=== PATIENT | female | born 1950 | race Caucasian/White ===

== ENCOUNTER 2024-04-04 12:01 | Emergency (ER) | payer MEDICARE, OTHER, SELFPAY ==
--- NOTE | ~2024-04-04 | CT_ITS ---
EXAMINATION: CT HEAD WITHOUT CONTRAST CT CERVICAL SPINE WITHOUT CONTRAST CT MAXILLOFACIAL WITHOUT CONTRAST CLINICAL INFORMATION: Head strike. Status post fall. Chipped front tooth. COMPARISON: None. TECHNIQUE: Multidetector volumetric imaging of the head was performed without the administration of intravenous contrast. Images were also obtained with through the cervical spine as well as the facial bones from the frontal sinuses through the mandible. Multiplanar reconstructed images in coronal and sagittal orientations were submitted. This CT examination was performed using dose optimization techniques as appropriate, variously including the following: *Automated exposure control *Adjustment of mA and/or kV according to patient size (this includes techniques or standardized protocols for targeted exams where dose is matched to indication/reason for exam; i.e. extremities or head) *Use of iterative reconstruction technique DOSE: 1223 mGy-cm FINDINGS: HEAD: There is no evidence of acute intracranial hemorrhage or territorial infarction. No abnormal mass-effect or midline shift. No extra-axial fluid collections. Garzon to white matter differentiation is well preserved. The ventricles are normal in size and configuration. A few foci of hypoattenuation in the subcortical and periventricular white matter are most consistent with chronic microangiopathic changes. Calcific atherosclerosis is present within the cavernous segments of the internal carotid arteries. The soft tissues and osseous structures are normal. The sinuses and mastoid air cells are clear. MAXILLOFACIAL: The right first maxillary incisor is chipped at its medial crown portion. 2 otherwise appear intact. No fractures of the roots are identified. Punctate foci of radiodense debris are present within the right lower lip just to the right of midline with associated surrounding soft tissue swelling. The mandible, maxilla, pterygoid plates, nasal bones, zygomatic arches, paranasal sinus parks, and bony orbits are intact. No acute osseous abnormality within the maxillofacial region. 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 The paranasal sinuses and mastoid air cells remain well-aerated. Minimal pneumatization of the frontal bones. Globes are aphakic. No retrobulbar abnormalities. Orbits appear intact. CERVICAL SPINE: Vertebral body heights are normal. No fractures of the vertebral bodies or posterior elements. Vertebral alignment is normal. No subluxation. Degenerative osteophytes and sclerosis are present at the atlantodental articulation, though normal alignment is maintained. Craniocervical junction is normal. Mild to moderate multilevel degenerative disc disease is most notable at C6-C7, characterized by loss of ventricular disc height, endplate osteophytes, and uncovertebral osteophytes. Mild multilevel facet arthropathy, most notably on the left at C2-C3. Posterior disc osteophyte complex at the C6-C7 level produces mild central canal narrowing, asymmetric to the left. No epidural hematoma. Uncovertebral osteophytes produce left neural foraminal encroachment at C5-C6 and C6-C7. No significant paravertebral soft tissue swelling. Atherosclerotic calcifications are present in the carotid arteries. Imaged portions of the lung apices are clear. CT/CT cervical spine wo IV con IMPRESSION: 1. No acute intracranial pathology. 2. Chipped right first maxillary incisor. No additional facial fractures. 3. No acute fracture or malalignment in the cervical spine. Mild to moderate multilevel degenerative spondylosis, most notably at C6-C7.
--- NOTE | ~2024-04-04 | XR_ITS ---
EXAMINATION: XR WRIST, RIGHT CLINICAL INFORMATION: Pain status post fall COMPARISON: None available. TECHNIQUE: PA, lateral, oblique, and scaphoid views of the right wrist. FINDINGS: Bones are osteopenic. No acute fracture or malalignment. Soft tissue swelling is present at the wrist. No appreciable scaphoid fracture. There is severe osteoarthritis of the triscaphe joint with joint space narrowing, marginal osteophytes, to a cortical sclerosis, and articular cortical remodeling. Mild radiocarpal osteoarthritis with subtle chronic osseous fragmentation at the ulnar margin of the distal radius. Mild first CMC osteoarthritis. XR/XR wrist RT min 3V IMPRESSION: 1. No acute fracture or malalignment. 2. Soft tissue swelling at the wrist. 3. Severe triscaphe osteoarthritis.
[2024-04-04 12:05] VITALS: BP 169/84; PULSE 95; RESP 18; TEMP 36.6; O2SAT 98; BMI 33.3
--- NOTE | 2024-04-04 12:06 | ED.FALL ---
HPI - Fall General Chief Complaint: Fall Stated Complaint: Fall/Lip lac Time Seen by Provider: 04/04/24 13:30 History of Present Illness HPI Narrative: Patient complains of laceration to the lip and some right wrist pain after a fall, she was walking carrying something and tripped and fell forward and cut her lip and put out her right hand and now has pain in the right hand and wrist She denies any head strike, she had no loss of consciousness no headache no confusion no dizziness no nausea or vomiting no vision changes, she had no preceding dizziness or feeling faint there was no syncope or presyncope She has no neck pain no numbness weakness or tingling no chest pain no shortness of breath no abdominal pain no nausea or vomiting, except for right wrist there are no other extremity pains and no problem walking Related Data Allergies Allergy/AdvReac Type Severity Reaction Status Date / Time levofloxacin [From Levaquin] Allergy Rash Verified 04/04/24 12:08 Penicillins [PCN] Allergy Rash Verified 04/04/24 12:07 sulfamethoxazole Allergy Rash Verified 04/04/24 12:08 [From Bactrim] trimethoprim [From Bactrim] Allergy Rash Verified 04/04/24 12:08 [facility] Past Medical History Source: nursing notes reviewed Social History Social History Advance Directives: No Advance Directives Information Provided: Yes Physical Exam Vital Signs: Vital Signs: Last Vital Signs Temp 97.7 F 04/04/24 16:20 Pulse 90 04/04/24 16:20 Resp 18 04/04/24 16:20 BP 164/84 H 04/04/24 16:20 Pulse Ox 96 04/04/24 16:20 O2 Del Method Room Air 04/04/24 16:20 BMI result Body Mass Index 33.3 General appearance comfortable cooperative no acute distress Head is normocephalic atraumatic, there is no phillips sign no hemotympanum no raccoon eyes no defects or hematomas on the scalp Facial exam there is a 0.5 cm superficial laceration below the lower lip as well as a very small inner lip laceration, when I sprayed water in the laceration it did not go through to the other side meeting when I sprayed water with a syringe into the external lower lip laceration it did not penetrate to the inner lip laceration No significant tenderness to any bones of the face no other signs of trauma to the exterior the face no ecchymosis no swelling no deformity except for a chipped upper tooth which is not loose The neck is supple no C-spine tenderness Chest wall nontender Ribs nontender Abdomen soft nontender The back no focal bony tenderness and range of motion is normal Extremities the right wrist had some pain with extension and some thenar eminence ecchymosis and mild swelling as well as some very mild dorsal tenderness and swelling, range of motion was good except on extension Lower extremities normal ambulates easily and upper extremities normal except for the right wrist Neuro no focal motor or sensory deficits, gait and balance are normal, interaction comprehension expression normal, cranial nerves 2-12 intact as tested, motor is 5/5 x4 and sensation intact and symmetrical Course Course Course Narrative: This is an RME: Additional HPI, ROS, PE not included below will be deferred to primary provider. RME assessment and note performed by: Meg May PA-C This is a [id number]-female, with a hx of htn, hld, who presents to the ER with complaints of laceration to inner lower lip, and chin s/p mechanical fall. Pt tripped and landed forward, striking her face. Small lac to chin, larger laceration inner lip. TTP overlying maxilla. +chipped front tooth. No c spine tenderness. Also reporting right wrist pain Plan: ct head, neck, facial bones, right wrist xray Imaging CT scan of head face and neck no acute pathology except for a chipped tooth no fractures X-ray of the right wrist did show some soft tissue swelling but no fracture as well as osteoarthritis No repair was needed for the very small lip laceration which I believe is separate from the small inner lip lacerations which again were very small and needed no suturing Patient was given a tetanus shot and a Velcro wrist brace for a sprained right wrist and will follow with orthopedics, she ambulates easily and is comfortable and stable throughout her visit Discharge Plan Discharge Clinical Impression: Laceration of lip, Right wrist sprain, Chipped tooth Patient Disposition: Home, Self-Care Additional Instructions: CT scan of face head and cervical spine were negative except for chipped tooth which you are aware of Wrist x-ray did not show any broken bone The superficial laceration to her lip was not through and through water did not go through from the outside cut and needs no treatment If you have continuing wrist pain follow with orthopedist For the lip abrasion you got a tetanus shot here If it gets red swollen or painful return immediately to the ER to be checked for infection otherwise if it does not hurt and does not become infected it will just get better in a couple of days Follow with a dentist for her tooth Return any time any worse condition or any concerns Referrals: Juan Antonio Johnson MD [Physician] - (Right wrist sprain) Print Language: Macedonian
--- OUTSIDE RECORDS SUMMARY | 2024-04-04 13:11 | XMS_ITS | Continuity of Care Document ---
Author Organization [facility] Address [address] [place] [address]- Care Team Providers Care Manager Produce Name Role Phone Guy VAZQUEZ, Danni Wu Primary Care Physic anish Encounter [facility] [place] Date(s): 08/15/21 - 11/01/21 [facility] [address] [place] [id number] Attending Physician: Sil York MD Admitting Physician: Sil York MD Referring Physician: Adore Jain NP Allergies, Adverse Reactions, Alerts Substance Reaction Severity Status penicillin rash Active Zestril Active Bactrim n/v Active Levaquin rash Active Immunizations Given and Recorded Vaccine Date Status Refusal Reason SARS-CoV-2 (COVID-19) Ad26 vaccine 02/06/21 Record ed tetanus-diphtheria toxoids (Td) 05/21/19 Recorded Zoster Vaccine Live 04/18/17 Recorded pneumococcal 23-valent vaccine 04/25/16 Recorded pneumococcal 13-valent vaccine 01/10/15 Recorded tetanus/diphtheria/pertussis, acel(Tdap) 10/20/08 Recorded Medications acetaminophen 325 mg oral tablet 650 mg, By Mouth, Every 6 hours, Refills 0, Maintenance, 07/21/18 7:07:53 EDT Start Date: 07/21/18 Status: Ordered Ascorbic Acid Tablet 500 mg, By Mouth, Daily, Refills 0, Maintenance, 07/21/18 7:07:58 EDT Start Date: 07/21/18 Status: Ordered Atorvastatin 10 mg, By Mouth, Daily at bedtime, Maintenance, 01/18/15 9:54:39 Start Date: 01/18/15 Status: Ordered atorvastatin 10 mg oral tablet 1 tablet = 10 mg, By Mouth, Daily, # 30 tablet, 0 Refills, Maintenance, 10/10/21 10:02:00 EST, Partial fill upon patient request if the prescription is for a schedule II opioid drug. Start Date: 10/10/21 Status: Ordered docusate sodium 100 mg oral capsule 100 mg, 1, capsule, By Mouth, 2 times a day, Refills 0, Maintenance, 07/21/18 7:08:02 EDT Start Date: 07/21/18 Status: Ordered ferrous gluconate 324 mg oral tablet 1 tablet = 324 mg, By Mouth, Daily, # 30 tablet, 0 Refills, Maintenance, 09/09/15 8:49:08, Tablet Start Date: 09/09/15 Status: Ordered HYDROmorphone 2 mg oral tablet = 2 mg, By Mouth, Every 4 hours, PRN Pain , Mild, 0 Refills, Maintenance, 07/21/18 7:08:04 EDT, Tablet Start Date: 07/21/18 Status: Ordered HYDROmorphone 4 mg oral tablet = 4 mg, By Mouth, Every 4 hours, PRN Pain , Moderate, 0 Refills, Maintenance, 07/21/18 7:08:06 EDT,Tablet Start Date: 07/21/18 Status: Ordered irbesartan 150 mg oral tablet 1 tablet = 150 mg, By Mouth, Daily, # 30 tablet, 0 Refills, Maintenance, 07/18/18 1:02:26 EDT, Tablet Start Date: 07/18/18 Status: Ordered loratadine 10 mg oral capsule 1 capsule = 10 mg, By Mouth, Daily, # 10 capsule, 0 Refills, Maintenance, 10/10/21 10:01:00 EST, Capsule, Partial fill upon patient request if the prescription is for a schedule II opioid drug. Start Date: 10/10/21 Status: Ordered loratadine 10 mg oral tablet 1 tablet = 10 mg, By Mouth, Daily, 0 Refills, Maintenance, 01/18/15 10:07:17 Start Date: 01/18/15 Status: Ordered Maalox Plus Liquid 30 mL, By Mouth, Every 4 hours, PRN Other, Heartburn, 0 Refills, Maintenance, 07/21/18 7:07:55 EDT,Suspension Start Date: 07/21/18 Status: Ordered MiraLax Powder 1 pack/packet = 17 Gm, By Mouth, Daily, 0 Refills, Maintenance, 07/21/18 7:08:12 EDT, Powder Start Date: 07/21/18 Status: Ordered MOM Liquid 30 mL, By Mouth, Daily, PRN Constipation, 0 Refills, Maintenance, 07/21/18 7:08:10 EDT, Suspension Start Date: 07/21/18 Status: Ordered nystatin 885146 u oral capsule 1 capsule = 500,000 units, By Mouth, 3 times a day, # 21 capsule, 0 Refills, Maintenance, 07/18/18 1:01:59 EDT, Capsule Start Date: 07/18/18 Status: Ordered olmesartan 20 mg oral tablet 1/2 tablet, By Mouth, Daily, # 30 tablet, 0 Refills, Maintenance, 10/10/21 10:01:00 EST, Tablet, Partial fill upon patient request if the prescription is for a schedule II opioid drug. Start Date: 10/10/21 Status: Ordered Pantoprazole = 40 mg, By Mouth, Daily, 0 Refills, Maintenance, 01/18/15 9:54:51 Start Date: 01/18/15 Status: Ordered pantoprazole 40 mg oral delayed release tablet 1 tablet = 40 mg, By Mouth, Daily, # 30 tablet, 0 Refills, Maintenance, 10/10/21 10:01:00 EST, EC Tablet Start Date: 10/10/21 Status: Ordered senna 187 mg oral tablet 1 tablet = 8.6 mg, By Mouth, Daily at bedtime, 0 Refills, Maintenance, 07/21/18 7:08:21 EDT, Tablet Start Date: 07/21/18 Status: Ordered warfarin 5 mg oral tablet = 5 mg, By Mouth, Once, 0 Refills, Maintenance, 07/21/18 7:08:18 EDT, Tablet Start Date: 07/21/18 Status: Ordered Problem List Condition Effective Dates Status Health Status Inform ant Obese class I(Confirmed) Active Social History Social History Type Response Smoking Status Never smoker entered on: 01/28/15 Sex
--- OUTSIDE RECORDS SUMMARY | 2024-04-04 13:11 | XMS_ITS | Continuity of Care Document ---
Author Organization [facility] Address [address] [place] [address]- Care Team Providers Care Sql Engineer Name Role Phone Guy VAZQUEZ, Danni Wu Primary Care Physic anish Encounter [facility] Date(s): 01/10/23 - 02/09/23 [facility] [address] [place] [address]- Allergies, Adverse Reactions, Alerts Substance Reaction Severity Status penicillin rash Active Zestril Active Levaquin rash Active Bactrim n/v Active Immunizations Given and Recorded Vaccine Date [...] Suspension Start Date: 07/21/18 Status: Ordered nystatin 816729 u oral capsule 1 capsule = 500,000 [...] Date: 07/21/18 Status: Ordered Problem List Condition Confirmation Course Effective Dates Status Health St [facility] Informant Obese class I Confirmed Active Social History Social History Type Response Smoking Status Never smoker entered on: 01/28/15 Sex Patient Care team information Care Team Personnel Name: Diana Edwards RN Position: [facility] Nurse Member Role: Primary Care Nurse Name: Tamiko Tse RN Position: [facility] RN Member Role: Primary Care Nurse Name: Georgi Alcala RN Position: [facility] RN Member Role: Primary Care Nurse Name: Danni Tovar MD Position: [facility] Outreach Member Role: PCP Address: Address: [address] [place] [address], [place] [address]- Name: Perry MILNER, Radha Alvarez Position: [facility] PCO Associate Professional Member Role: Primary Care Nurse Address: Address: [address] [place] [address]- Care Team Related Persons Name: BRENDAN ELLIOTTFANNY Address: home [address] [place] [address]
--- OUTSIDE RECORDS SUMMARY | 2024-04-04 13:12 | XMS_ITS | Continuity of Care Document ---
Author Organization [facility] Diabetes Address [address] [place] [address]- Care Team Providers Care Upholsterer Outside Name Role Phone Guy VAZQUEZ, Danni Wu Primary Care Physic anish Encounter [facility] [place] Date(s): 10/31/23 - 11/30/23 [facility] Diabetes [address] [place] [address]- Attending Physician: Admtr, Pattie Admitting Physician: Admtr, Ar8 Referring Physician: Admtr, Ar8 Allergies, Adverse Reactions, Alerts Substance Reaction Severity [...] Suspension Start Date: 07/21/18 Status: Ordered nystatin 897217 u oral capsule 1 capsule = 500,000 [...] EDT, Tablet Start Date: 07/21/18 Status: Ordered trospium chloride 20 mg oral tablet 180 each, 0 Refill(s), TAKE 1 TABLET BY MOUTH TWICE A DAY, 0 Refills, 08/20/23 10:57:00 EDT, Partial fill upon patient request if the prescription is for a schedule II opioid drug. Start Date: 08/20/23 Status: Ordered warfarin 5 mg oral tablet = 5 mg, By Mouth, Once, 0 Refills, Maintenance, 07/21/18 7:08:18 EDT, Tablet Start Date: 07/21/18 Status: Ordered Problem List Condition Confirmation Course Effective Dates Status Health St atus Informant Obese class II Confirmed Active Social History Social History Type Response Smoking Status Never smoker entered on: 01/28/15 Sex Patient Care team information Care Team Personnel Name: Diana Edwards RN Position: [facility] AMB Nurse Member Role: Primary Care Nurse Name: Tamiko Tse RN Position: [facility] SN RN Member Role: Primary Care Nurse Name: Georgi Alcala RN Position: [facility] RN Member Role: Primary Care Nurse Name: Guy VAZQUEZ, Danni Wu Position: [facility] Outreach Member Role: PCP Address: Address: [address] [place] [address]- Name: Radha Amador NP Position: [facility] PCO Associate Professional Member Role: Primary Care Nurse Address: Address: [address] [place] [address]- Care Team Related Persons Name: RASTA CARDONA Address: home [address] [place] [address]
--- OUTSIDE RECORDS SUMMARY | 2024-04-04 13:12 | XMS_ITS | Continuity of Care Document ---
Author Organization [facility] Address [address] [place] [address]- Care Team Providers Care Distribution Operations Supervisor Name Role Phone Guy VAZQUEZ, Danni Wu Primary Care Physic anish Encounter [facility] [place] Date(s): 08/20/23 - 09/19/23 [facility] [address] [place] [id number] Attending Physician: Admtr, Pattie Admitting Physician: Admtr, [...] Suspension Start Date: 07/21/18 Status: Ordered nystatin 907584 u oral capsule 1 capsule = 500,000 [...] Team Personnel Name: Diana Edwards RN Position: [facility] AMB Nurse Member Role: Primary Care Nurse Name: Tamiko Tse RN Position: [facility] SN RN Member Role: Primary Care Nurse Name: Georgi Alcala RN Position: [facility] RN Member Role: Primary Care Nurse Name: Guy VAZQUEZ, Danni Wu Position: [facility] Outreach Member Role: PCP Address: Address: [address] [place] [address]- Name: Radha Amador NP Position: [facility] PCO Associate Professional Member Role: Primary Care Nurse Address: Address: [address] [place] [address]- Care Team Related Persons Name: RASTA CARDONA Address: home [address] [place] [address]
--- OUTSIDE RECORDS SUMMARY | 2024-04-04 13:12 | XMS_ITS | Continuity of Care Document ---
Author Organization [facility] Address [address] [place] [address]- Care Team Providers Care Hand Hardener Name Role Phone Guy VAZQUEZ, Danni Wu Primary Care Physic anish Encounter [facility] Date(s): 09/06/23 - 10/06/23 [facility] [address] [place] [address]- Allergies, Adverse Reactions, Alerts Substance Reaction Severity [...] Suspension Start Date: 07/21/18 Status: Ordered nystatin 836288 u oral capsule 1 capsule = 500,000 [...] Team Personnel Name: Diana Edwards RN Position: [facility] Nurse Member Role: Primary Care Nurse Name: Tamiko Tse RN Position: [facility] SN RN Member Role: Primary Care Nurse Name: Fredrick AVALOS, Georgi Lozano Position: [facility] RN Member Role: Primary Care Nurse Name: Gyu VAZQUEZ, Danni Wu Position: [facility] Outreach Member Role: PCP Address: Address: [address] [place] [address]- Name: Radha Amador NP Position: [facility] PCO Associate Professional Member Role: Primary Care Nurse Address: Address: [address] [place] [address]- Care Team Related Persons Name: ELLIOTT CARDONAFANNY Address: home [address] [place] [address]
--- OUTSIDE RECORDS SUMMARY | 2024-04-04 13:12 | XMS_ITS | Continuity of Care Document ---
Author Organization [facility] Diabetes Address [address] [place] [address]- Care Team Providers Care Basket Turner Name Role Phone Guy VAZQUEZ, Danni Wu Primary Care Physic anish Encounter [facility] Date(s): 04/24/23 - 05/24/23 [facility] Diabetes [address] [place] [address]- Allergies, Adverse Reactions, Alerts Substance Reaction Severity [...] Suspension Start Date: 07/21/18 Status: Ordered nystatin 702231 u oral capsule 1 capsule = 500,000 [...] Team Personnel Name: Diana Edwards RN Position: [facility] Nurse Member Role: Primary Care Nurse Name: Tamiko Tse RN Position: [facility] RN Member Role: Primary Care Nurse Name: Georgi Alcala RN Position: [facility] RN Member Role: Primary Care Nurse Name: Danni Tovar MD Position: [facility] Outreach Member Role: PCP Address: Address: [address] [place] [address] [place] [address]- Name: Perry MILNER, Radha Alvarez Position: [facility] PCO Associate Professional Member Role: Primary Care Nurse Address: Address: [address] [place] [address]- Care Team Related Persons Name: BRENDAN ELLIOTTFANNY Address: home [address] [place] [address]
--- OUTSIDE RECORDS SUMMARY | 2024-04-04 13:12 | XMS_ITS | Continuity of Care Document ---
Author Organization [facility] Diabetes Address [address] [place] [address]- Care Team Providers Care Mysql Database Administrator Name Role Phone Guy VAZQUEZ, Danni Wu Primary Care Physic anish Encounter [facility] [place] Date(s): 10/30/22 - 11/29/22 [facility] Diabetes [address] [place] [address]- Allergies, Adverse Reactions, Alerts Substance Reaction Severity [...] Suspension Start Date: 07/21/18 Status: Ordered nystatin 135673 u oral capsule 1 capsule = 500,000 [...] Team Personnel Name: Diana Edwards RN Position: [facility] Nurse Member Role: Primary Care Nurse Name: Tamiko Tse RN Position: [facility] RN Member Role: Primary Care Nurse Name: Georgi Alcala RN Position: [facility] RN Member Role: Primary Care Nurse Name: Danni Tovar MD Position: [facility] Outreach Member Role: PCP Address: Address: [address] [place] [address], [place] [address]- Name: Perry MILNER, Radha Alvarez Position: [facility] PCO Associate Professional Member Role: Primary Care Nurse Address: Address: [address] [place] [address]- Care Team Related Persons Name: BRENDAN ELLIOTTFANNY Address: home [address] [place] [address]
--- OUTSIDE RECORDS SUMMARY | 2024-04-04 13:12 | XMS_ITS | Continuity of Care Document ---
Author Organization [facility] Diabetes Address [address] [place] [address]- Care Team Providers Care Senior Net Programmer Name Role Phone Danni Tovar MD Primary Care Physic anish [place] [facility] [place]s): 01/31/22 - 05/31/22 [facility] Diabetes [address] [place] [address] Attending Physician: Sil York MD Admitting Physician: Sil York MD Referring Physician: Danni Tovar MD Allergies, Adverse Reactions, Alerts Substance Reaction Severity [...] Suspension Start Date: 07/21/18 Status: Ordered nystatin 514909 u oral capsule 1 capsule = 500,000 [...]
--- OUTSIDE RECORDS SUMMARY | 2024-04-04 13:12 | XMS_ITS | Continuity of Care Document ---
Author Organization [facility] Diabetes Address [address] [place] [address]- Care Team Providers Care Field Ironworker Name Role Phone Danni Tovar MD Primary Care Physic anish [place] [facility] [place] - 02/09/23 [facility]ocr[facility]ology [facility] Diabetes [address] [place] [id number] Attending Physician: Sil York MD Admitting Physician: [...] Suspension Start Date: 07/21/18 Status: Ordered nystatin 946028 u oral capsule 1 capsule = 500,000 [...] Team Personnel Name: Diana Edwards RN Position: [facility] Nurse Member Role: Primary Care Nurse Name: Tamiko Tse RN Position: [facility] RN Member Role: Primary Care Nurse Name: Georgi Alcala RN Position: [facility] RN Member Role: Primary Care Nurse Name: Guy VAZQUEZ, Danni Wu Position: [facility] Outreach Member Role: PCP Address: Address: [address] [place] [address], [place] [address]- Name: Radha Amador NP Position: [facility] PCO Associate Professional Member Role: Primary Care Nurse Address: Address: [address] [place] [address]- Care Team Related Persons Name: RASTA CARDONA Address: home [address] [place] [address]
--- OUTSIDE RECORDS SUMMARY | 2024-04-04 13:12 | XMS_ITS | Continuity of Care Document ---
Author Organization [facility] Address [address] [facility] [place] [address] [place] [address]- Care Team Providers Care Title I Coordinator Name Role Phone Guy VAZQUEZ, Danni Wu Primary Care Physic anish Encounter 10/24/23 - 10/31/23 [facility] [address], [address] [place] [address]- Attending Physician: Sil York MD Admitting Physician: Sil York MD Referring Physician: Sil York MD Allergies, Adverse Reactions, Alerts Substance Reaction [...] Suspension Start Date: 07/21/18 Status: Ordered nystatin 332558 u oral capsule 1 capsule = 500,000 [...] Team Personnel Name: Diana Edwards RN Position: [facility] AMB Nurse Member Role: Primary Care Nurse Name: Tamiko Tse RN Position: [facility] SN RN Member Role: Primary Care Nurse Name: Georgi Alcala RN Position: [facility] RN Member Role: Primary Care Nurse Name: Guy VAZQUEZ, Danni Wu Position: [facility] Outreach Member Role: PCP Address: Address: [address] [place] [address], [place] [address]- Name: Radha Amador NP Position: [facility] PCO Associate Professional Member Role: Primary Care Nurse Address: Address: [address] [place] [address]- Care Team Related Persons Name: RASTA CARDONA Address: home [address] [place] [address]
--- OUTSIDE RECORDS SUMMARY | 2024-04-04 13:12 | XMS_ITS | Continuity of Care Document ---
Author Organization [facility] Address [address] [place] [address]- Care Team Providers Care Business Employment Specialist Name Role Phone Danni Tovar MD Primary Care Physic anish [place] [facility] [place]/23 [facility] [address] [place] [id number]- Attending Physician: Kandis Delarosa MD Admitting Physician: Kandis Delarosa MD Referring Physician: Danni Tovar MD Allergies, [...] Suspension Start Date: 07/21/18 Status: Ordered nystatin [id number] u oral capsule 1 capsule = 500,000 [...] atus Informant Obese class II Confirmed Active Results Radiology Reports * Exam Date Time Procedure Performing Provider Status 09/05/23 4:10 PM Shoulder Min 2 Views Right Cole Jim; Kate (Verified) Notes: (Shoulder Min 2 Views Right) Reason For Exam: pain in right shoulder RESULT: Shoulder Min 2 Views Right Shoulder Min 2 Views Right, 2 views REASON: pain in right shoulder COMPARISON: None. FINDINGS: No fracture or dislocation. No arthritic change of the glenohumeral joint. Normal AC joint and portions of the clavicle included on the exam. No calcification of the rotator cuff. Mild atelectasis at the right lung base. IMPRESSION: Unremarkable appearance of the right shoulder. WSN: [id number] Ordering Physician: Kandy Lynch Dictated By: Tommy Serna MD Dictated Date/Time: 09/05/23 5:01 pm Reviewed By: Tommy Serna MD Signed By: Tommy Serna MD Signed Date/Time: 09/05/23 5:01 pm Transcribed By: AMELIA Transcribed Date/Time: 09/05/23 5:01 pm Social History Social History Type Response Smoking Status Never smoker entered on: 01/28/15 Sex Patient Care team information Care Team Personnel Name: Diana Edwards RN Position: [facility] AMB Nurse Member Role: Primary Care Nurse Name: Tamiko Tse RN Position: [facility] SN RN Member Role: Primary Care Nurse Name: Georgi Alcala RN Position: [facility] RN Member Role: Primary Care Nurse Name: Danni Tovar MD Position: [facility] Outreach Member Role: PCP Address: Address: [address] [place] [id number]- Name: Radha Amador NP Position: [facility] PCO Associate Professional Member Role: Primary Care Nurse Address: Address: [address] [place] [address]- Care Team Related Persons Name: RASTA CARDONA Address: home [address] [place] [id number]
--- NOTE | 2024-04-04 13:20 | PC.NURSE ---
patient a&ox3, pt ambulated to room with steady gait, notable lac to lip, family at bedside, call paz within reach, will continue to monitor
[2024-04-04 16:20] VITALS: BP 164/84; PULSE 90; RESP 18; TEMP 36.5; O2SAT 96
[2024-04-04] MEDS: Diphth,Pertus(ACell),Tet Adult 0.5 ML SYRINGE IM (16:32)
--- NOTE | 2024-04-04 16:37 | PC.NURSE ---
splint applied to rt wrist, bandaid applied per pts request to chin area, pt medicated with tetanus per order.
[2024-04-04 16:38] VITALS: BP 164/84; PULSE 96; RESP 18; TEMP 36.5; O2SAT 96
== END 2024-04-04 16:39 | disposition home or self-care (01) ==
PROVIDERS: Emergency Provider Emergency Medicine
DX: S01.511A Laceration without foreign body of lip, initial encounter (principal); S63.501A Unspecified sprain of right wrist, initial encounter; W01.0XXA Fall on same level from slipping, tripping and stumbling without subsequent striking against object, initial encounter; K03.81 Cracked tooth; Y93.89 Activity, other specified; Y92.9 Unspecified place or not applicable; Y99.9 Unspecified external cause status; Z23 Encounter for immunization
CPT/HCPCS: 70450; 70486; 72125; 73110; 90471; 90715; 99283; 99284